=== PATIENT | male | born 1995 | race American Indian/Alaskan Native ===

== ENCOUNTER 2025-03-30 05:57 | Observation (INO) ==
[2025-03-30] MEDS ORDERED: IOPAMIDOL 100 ML BOTTLE IV ONE (05:58)
[2025-03-30] MEDS: ONDANSETRON 4 MG/2 ML VIAL IV ONE (06:16)
[2025-03-30] MEDS: HYDROmorphone 0.5 MG/0.5 ML SYRINGE IV ONE ×3 (06:16→13:01)
[2025-03-30] MEDS: 0.9 % SODIUM CHLORIDE 1,000 ML IV ONE (06:17)
[2025-03-30 06:57] LABS: ALT/SGPT 18 U/L (<40); AST/SGOT 21 U/L (<40); Albumin 4.4 gm/dL (3.2-5.2); Albumin/Globulin Ratio 1.2 (1.0-2.3); Alkaline Phosphatase 81 U/L (39-117); Anion Gap 17.0 (8.0-16.0); Bilirubin,Total 1.1 mg/dL (0.1-1.0); Blood Urea Nitrogen 8 mg/dL (6-20); Calcium 8.9 mg/dL (8.6-10.4); Carbon Dioxide 16 mmol/L (22-30); Chloride 104 mmol/L (96-108); Globulin 3.6 gm/dL (2.2-3.7); Glucose 111 mg/dL (70-105); Potassium 3.1 mmol/L (3.3-5.1); Sodium 137 mmol/L (133-145)
[2025-03-30] MEDS: KETOROLAC 30 MG/ML VIAL IV ONE (07:07)
[2025-03-30] MEDS: ACETAMINOPHEN 1,000 MG/100 ML BAG IV ONE ×2 (07:08→15:07)
[2025-03-30 07:17] LABS: Basophils # (Auto) 0.02 K/mcL (0.00-0.30); Basophils % (Auto) 0.2 % (0.0-2.0); Eosinophils # (Auto) 0.03 K/mcL (0.00-0.70); Eosinophils % (Auto) 0.3 % (0.0-7.0); Hematocrit 41.5 % (40.1-51.0); Hemoglobin 14.8 g/dL (13.7-17.5); Lymphocytes # (Auto) 1.66 K/mcL (1.50-4.80); Lymphocytes % (Auto) 17.8 % (15.5-49.0); Mean Corpuscular HGB Conc 35.7 g/dL (31.0-36.0); Monocytes # (Auto) 0.40 K/mcL (0.10-0.90); Monocytes % (Auto) 4.3 % (1.0-12.0); Neutrophils % (Auto) 77.3 % (38.0-78.0); Platelet Count 264 K/mcL (140-440); RBC 4.79 M/mcL (4.63-6.08); WBC 9.3 K/mcL (4.5-11.0)
[2025-03-30] MEDS: PROCHLORPERAZINE 10 MG/2 ML VIAL IV ONE (07:29)
[2025-03-30] MEDS: diphenhydrAMINE 50 MG/ML VIAL IV ONE (07:30)
[2025-03-30] MEDS: FAMOTIDINE/PF 20 MG/2 ML VIAL IV ONE (07:58)
[2025-03-30] MEDS: cefTRIAXone 1 GM VIAL IV ONE (07:59)
[2025-03-30] MEDS: metroNIDAZOLE 500 MG/100 ML BAG IV ONE (08:03)
[2025-03-30 08:07] LABS: Bacteria,Urine 0 /hpf (0); Bilirubin,Urine Negative (Negative); Color,Urine Yellow; Glucose,Urine (UA) Negative (Negative); Ketones,Urine 80 mg/dL (Negative); Leukocyte Esterase,Urine Negative /uL (Negative); Mucus,Urine Few /hpf; PH,Urine 7.0 (5.0-9.0); Protein,Urine Negative (Negative); Specific Gravity,Urine 1.020 (1.000-1.035); Urobilinogen,Urine Negative
[2025-03-30] MEDS: POTASSIUM CHLORIDE 20 MEQ in DEXTROSE 5% IN WATER 250 ML IV ONE (09:05)
[2025-03-30 09:09] LABS: INR 1.1 (0.9-1.1); Prothrombin Time 14.8 sec (11.9-14.5)
[2025-03-30] MEDS: 0.9 % SODIUM CHLORIDE 1,000 ML IV SCH (11:28)
[2025-03-30 11:42] LABS: INR 1.1 (0.9-1.1); Prothrombin Time 14.8 sec (11.9-14.5)
[2025-03-30] MEDS: POTASSIUM CHLORIDE 40 MEQ in DEXTROSE 5% IN WATER 500 ML IV ONE (12:26)
[2025-03-30] MEDS: POTASSIUM CHLORIDE 10 MEQ/100 ML BAG IV SCH (12:31)
[2025-03-30] MEDS ORDERED: ONDANSETRON 4 MG/2 ML VIAL ONE (13:31)
[2025-03-30] MEDS ORDERED: MIDAZOLAM 2 MG/2 ML VIAL ONE (13:31)
[2025-03-30] MEDS ORDERED: DEXAMETHASONE 10 MG/ML VIAL ONE (13:31)
[2025-03-30] MEDS ORDERED: KETOROLAC 30 MG/ML VIAL ONE (13:31)
[2025-03-30] MEDS ORDERED: PROPOFOL 200 MG/20 ML VIAL IV ONE (13:31)
[2025-03-30] MEDS ORDERED: FAMOTIDINE/PF 20 MG/2 ML VIAL IV ONE (13:31)
[2025-03-30] MEDS ORDERED: GLYCOPYRROLATE 0.2 MG/ML VIAL IV ONE (13:31)
[2025-03-30] MEDS ORDERED: LIDOCAINE 2% PF 5 ML VIAL ONE (13:31)
[2025-03-30] MEDS ORDERED: PHENYLephrine 1 MG/10 ML SYRINGE (ANEST) ONE (13:31)
[2025-03-30] MEDS ORDERED: HYDROmorphone 0.5 MG/0.5 ML SYRINGE ONE (14:14)
[2025-03-30] MEDS ORDERED: fentaNYL 100 MCG/2 ML VIAL ONE (14:28)
[2025-03-30] MEDS ORDERED: fentaNYL 100 MCG/2 ML VIAL IV PRN (14:39)
[2025-03-30] MEDS ORDERED: HYDROmorphone 0.5 MG/0.5 ML SYRINGE IV PRN (14:39)
[2025-03-30] MEDS ORDERED: IPRATROPIUM/ALBUTEROL 3 ML AMPUL.NEB NEB PRN (14:39)
[2025-03-30] MEDS ORDERED: DROPERIDOL 5 MG/2 ML VIAL IV PRN (14:39)
[2025-03-30] MEDS ORDERED: ROCURONIUM 10 MG/ML ML IV ONE (14:45)
[2025-03-30] MEDS ORDERED: SUGAMMADEX SODIUM 200 MG/2 ML VIAL IV ONE (14:47)
[2025-03-30] MEDS: LACTATED RINGERS 1,000 ML IV SCH (16:28)
[2025-03-30] MEDS: ACETAMINOPHEN 1,000 MG/100 ML BAG IV SCH (20:28)
[2025-03-31 06:55] LABS: Basophils # (Auto) 0.01 K/mcL (0.00-0.30); Basophils % (Auto) 0.1 % (0.0-2.0); Eosinophils # (Auto) 0 K/mcL (0.00-0.70); Eosinophils % (Auto) 0 % (0.0-7.0); Hematocrit 39.4 % (40.1-51.0); Hemoglobin 13.6 g/dL (13.7-17.5); Lymphocytes # (Auto) 1.85 K/mcL (1.50-4.80); Lymphocytes % (Auto) 12.9 % (15.5-49.0); Mean Corpuscular HGB Conc 34.5 g/dL (31.0-36.0); Monocytes # (Auto) 1.08 K/mcL (0.10-0.90); Monocytes % (Auto) 7.6 % (1.0-12.0); Neutrophils % (Auto) 79.3 % (38.0-78.0); Platelet Count 272 K/mcL (140-440); RBC 4.42 M/mcL (4.63-6.08); WBC 14.3 K/mcL (4.5-11.0)
[2025-03-31 07:27] LABS: ALT/SGPT 14 U/L (<40); AST/SGOT 13 U/L (<40); Albumin 3.7 gm/dL (3.2-5.2); Albumin/Globulin Ratio 1.2 (1.0-2.3); Alkaline Phosphatase 69 U/L (39-117); Anion Gap 12.0 (8.0-16.0); Bilirubin,Direct 0.5 mg/dL (<0.3); Bilirubin,Total 1.2 mg/dL (0.1-1.0); Blood Urea Nitrogen 7 mg/dL (6-20); Calcium 8.1 mg/dL (8.6-10.4); Carbon Dioxide 19 mmol/L (22-30); Chloride 107 mmol/L (96-108); Globulin 3.2 gm/dL (2.2-3.7); Glucose 108 mg/dL (70-105); Phosphorous 2.5 mg/dL (2.5-4.5); Potassium 3.7 mmol/L (3.3-5.1); Sodium 138 mmol/L (133-145); Triglycerides 44 mg/dL (<150); Uric Acid 5.5 mg/dL (2.5-8.0)
[2025-03-31] MEDS: cefTRIAXone 1 GM VIAL IV SCH (09:18)
[2025-03-31 12:05] VITALS: TEMP 98.9; O2SAT 99
[2025-03-31] MEDS: HYDROmorphone 0.5 MG/0.5 ML SYRINGE IV PRN (13:46)
== END 2025-03-31 16:06 | disposition home or self-care (01) ==
LOC: MEDSUR 05:57 → ED 05:57 → MEDSUR 10:55
PROVIDERS: ADMIT Family Medicine Adult Medicine; ATTEND Family Medicine Adult Medicine
PROC: LAPAPPY (ICD-10-PCS; 2025-03-30 14:00)